=== PATIENT | female | born 1950 | race African-American/Black ===

== ENCOUNTER 2016-12-10 05:16 | Inpatient (IN) ==
[2016-12-10] MEDS ORDERED: LACTATED RINGERS 1,000 ML IV SCH (06:30)
[2016-12-10 06:45] LABS: Basophils % 0.2 % (0.0-0.8); Eosinophils # 0.1 10*3/uL (0.0-0.87); Eosinophils % 1.1 % (0.00-10.9); Hemoglobin 10.5 GM/DL (12.0-16.0); Immature Granulocytes % 0.5 %; Immature Granulocytes Absolute 0.05 #; Lymphocytes # 1.9 10*3/uL (1.4-4.0); Mean Corpuscular HGB Conc 33.9 GM/DL (32-36); Mean Corpuscular Hemoglobin 31 PG (27-34); Mean Corpuscular Volume 92.8 FL (87-102); Mean Platelet Volume 11.3 FL (9.6-12.0); Monocytes # 0.6 10*3/uL (0.11-0.8); Monocytes % 6.5 % (1.7-12.7); Neutrophils # 6.6 10*3/uL (1.4-7.4); Neutrophils % 71.7 % (38.7-73.9); Platelet Count 359 T/CUMM (130-400); Red Blood Count 3.34 MC/CUMM (3.8-5.5); Red Cell Distribution Width 15.2 % (9.3-17.3); White Blood Count 9.2 T/CUMM (4-12)
--- NOTE | 2016-12-10 06:49 | History and Physical Update ---
History and Physical Update - History and Physical H&P was reviewed, the patient examined and there: are no changes in the patients condition since last H&P was completed.
--- NOTE | 2016-12-10 06:52 | EKG Report ---
Stationary ECG Study [facility] Test Date: 12/10/2016 6:51:49 AM Pat Name: RUDDY MIKE Department: Room: 608 Gender: F Neurosurgical Nurse Practitioner: RICHARD : 1950 Requested by: Tommy Story Order Number: [id number] Reading MD: CHARLES MENDEZ Intervals [place] Rate: 86 P: 57 FL: 185 QRS: 70 QRSD: 76 T: 37 QT: 309 QTc: 353 Interpretive Statements SINUS RHYTHM WITH OCCASIONAL SUPRAVENTRICULAR PREMATURE COMPLEXES SEPTAL MYOCARDIAL INFARCTION, PROBABLY OLD Electronically Signed On 12-10-16 12:55:59 CDT by CHARLES MENDEZ [email or web address]
[2016-12-10 07:04] LABS: INR 1.1; PT Patient Result 11.3 SECS; Partial Thromboplastin Time 31.4 SECS (0-40)
[2016-12-10] MEDS ORDERED: PROPOFOL 200 MG/20 ML VIAL IV ONE (07:15)
[2016-12-10] MEDS ORDERED: PHENYLEPHRINE 1 MG/10 ML SYRINGE IV ONE (07:15)
[2016-12-10 07:20] LABS: Albumin 2.8 G/DL (3.4-5.0); Bilirubin,Total 0.5 MG/DL (0.2-1.0); Calcium 9.6 MG/DL (8.5-10.1); Osmolality,Calculated 284.4 MOS/KG (273-304); Potassium 4.6 MMOL/L (3.5-5.1); Total Protein 7.7 G/DL (6.4-8.3)
--- NOTE | 2016-12-10 07:23 | XRay Report ---
Portable chest. Indication: Respiratory preoperative. Comparison: July 13, 2015. The heart is mildly enlarged. The pulmonary vasculature is normal. The lung cutler are clear. Gaseous distention of bowel. Degenerative changes of the spinal column and shoulders. Surgical clips in the right upper quadrant. Impression: Stable mild cardiomegaly. PROCEDURE INTERPRETED AT [facility] DEPARTMENT OF RADIOLOGY Final Report Signed by: Dr. Rut Clarke
[2016-12-10] MEDS ORDERED: BUPIVACAINE 0.25% 50 ML VIAL ONE (07:47)
[2016-12-10] MEDS ORDERED: LIDOCAINE 1%/EPI INJ 20 ML VIAL ONE (07:47)
[2016-12-10] MEDS ORDERED: ONDANSETRON 4 MG/2 ML VIAL IV PRN (08:52)
[2016-12-10] MEDS ORDERED: oxyCODONE/ACETAMINOPHEN 5-325 MG TABLET PO PRN (08:52)
[2016-12-10] MEDS ORDERED: ACETAMINOPHEN 325 MG TABLET PO PRN (08:52)
--- NOTE | 2016-12-10 08:52 | Operative Note ---
Date of procedure: 12/10/16 Pre-op diagnosis: Decubitus ulcers 3 Post-op diagnosis: same Procedure: Operative note: Preoperative diagnosis: 1. Unstageable left ischial decubitus ulcer. 2. Stage IV sacral decubitus ulcer 3. Unstageable right ischial decubitus ulcer Postoperative diagnosis: 1. Stage III left ischial decubitus ulcer 2. Stage IV sacral decubitus ulcer 3. Stage 4 right ischial decubitus ulcer Surgeon Dr. Story Anesthesia was general with local Brief history: 66-year-old patient status post CVA with a PEG tube in place primarily at home had been followed at the wound center for sacral ulcer. She came in a couple weeks ago with a new area on the right initial or greater trochanter area and one on the left ischial area. These areas had some necrotic tissue we debrided him at that time. She came back in at this last wound center and the one on the right was extremely bad with odor with a large amount necrotic tissue. It was too sensitive and she is too combative to do anything in the center so would like to bring through same day surgery for further debridement. Procedure: With patient in the left decubitus position prepped and draped in a sterile fashion timeout and antibiotics completed approaches area the wounds themselves. The pre-debridement ulcers are 1. Left ischial ulcer 2.5 x 2 x 1 cm. 2. sacral ulcer 6 x 2 x 1 cm. 3. Right ischial ulcer 3.8 x 3 x 1.5 cm At this point I like to go ahead and approach the left ischial ulcer first since is the hardest one to get to and was more dependent. At that point I took a knife and I begin to excise the necrotic tissue around the skin edge excising the skin and then carried down through this necrotic fatty tissue and into the deep fatty tissue of this area. We removed the skin and necrotic fatty tissue down to a clean bed until we had a good clean fatty tissue but no exposure of any fascia or muscle at this time. We washed and cleaned this and used electrocauterization. Post debridement wound is now 4 x 3 x 2 cm. I next went to the sacral ulcer by took a knife and excised the old skin around the edges of this ulcer came into the deep part of the tissue and then debrided the hyper granulating tissue off the base of the sacrum at this time. I then debrided some necrotic fatty tissue with the scissors and used electrocauterization control bleeding across the bed. Washed irrigated and cleaned it up at this time. We now have an ulcer that is 7 x 5 x 1.5 cm in size. Finally went up to the larger ulcer on the right initial area greater trochanter region. I begin to excise the necrotic skin around the edges of it and all the necrotic fatty tissue and slough that was in the base of this wound bed going care in it all way down. We took some tissue for culture from this area. At that point I could tell we had a good bit of undermining that was projecting laterally so I had a extend the incision in order to get to this tissue which had a large amount of necrotic tissue in this area. I debrided the fatty tissue from underneath the skin carried it down to the base at this point. I then begin debriding some muscle as well as fascia over the greater trochanter at this time. Did not expose any bone but debrided a good bit of fatty tissue fascia and muscle from the base of this wound bed to get a good clean area. One area in the muscle had oversew with some 3-0 Vicryl just with control bleeding. Washed irrigated and used electrocauterization control the rest of bleeding in the wound bed. We now have an ulcer that is 7 x 5 x 2.5 cm in size All the wounds were then washed irrigated and then got dressed and putting an Aquacel Ag gauze and the base along with the Dakin's wet gauze on top and a Mepilex border gauze. Patient was taken recovery room. Estimated blood loss 30 cc Sponge count correct 2 Drains none Complications none Condition stable satisfactory Anesthesia: GETA, local (0.25% Marcaine with epinephrine mixed ocio-ivi-[id number] 1% Xylocaine plain) Surgeon / Physician: Tommy Story Estimated blood loss: other (30 cc) Specimens: other (Tissue for cultures) Condition: stable Disposition: floor Results - Labs CBC & BMP: 12/10/16 06:38 12/10/16 06:37 Discharge Plan - Discharge Medications No Action Temazepam [Restoril] 15 mg PEG BEDTIME PRN PRN Reason: Sleep HYDROcodone/ACETAMIN 5-325 [[place] 5-325] 1 tablet PEG Q4H PRN PRN Reason: Pain Levothyroxine Tab [Synthroid Tab] 125 mcg PEG DAILY aMILoride [Midamor] 5 mg PEG DAILY Gemfibrozil [Lopid] 600 mg PEG BIDAC dilTIAZem HCl [Diltiazem ER (12 hr)] 60 mg PEG DAILY Atorvastatin [Lipitor] 20 mg PEG BEDTIME - Follow Up or Referral - Forms/Instructions
[2016-12-10] MEDS ORDERED: CHLORHEXIDINE 4% SOLN 118 ML BOTTLE TOP ONE (08:59)
[2016-12-10] MEDS ORDERED: SKIN HEALING OINT (AQUAPHOR) 50 GM TUBE TOP PRN (08:59)
[2016-12-10] MEDS ORDERED: TEMAZEPAM 15 MG CAPSULE PEG PRN (09:01)
[2016-12-10] MEDS ORDERED: SEVOFLURANE 1 UNIT/15 MINUTE INH ONE (09:15)
[2016-12-10] MEDS ORDERED: fentaNYL 100 MCG/2 ML VIAL ONE (09:15)
--- NOTE | 2016-12-10 09:38 | Anesthesia Post-Op ---
Anesthesia Post OP - Post Ansesthetic Evaluation Patient seen in post op: Yes Resp: within normal limits CV: within normal limits Mental: other (calmer for now, not combative) Temp: within normal limits Ruiq-Yo-Yxvqugoig: within normal limits Nausea and Vomiting: within normal limits Pain: within normal limits
[2016-12-10] MEDS ORDERED: GLUCAGON 1 MG VIAL IM PRN (11:16)
[2016-12-10] MEDS ORDERED: DEXTROSE 50% 25 GM/50 ML VIAL IV PRN (11:16)
[2016-12-10] MEDS: SODIUM CHLORIDE 0.9% 1,000 ML IV SCH (13:11)
[2016-12-10] MEDS: PANTOPRAZOLE 40 MG TABLET PO SCH (13:12)
[2016-12-10] MEDS: ceFAZolin 2,000 MG in PREMIX 1 EACH IV SCH ×2 (16:24→22:11)
[2016-12-10] MEDS: GEMFIBROZIL 600 MG TABLET PEG SCH (16:35)
[2016-12-10] MEDS: SODIUM HYPOCHLORITE 0.25% IRRIG 473 ML BOTTLE TOP SCH (19:46)
[2016-12-10] MEDS: ATORVASTATIN 20 MG TABLET PEG SCH (21:48)
[2016-12-11 02:41] LABS: Basophils % 0.2 % (0.0-0.8); Eosinophils # 0.1 10*3/uL (0.0-0.87); Hematocrit 30.3 VOL% (35.7-47.0); Hemoglobin 9.7 GM/DL (12.0-16.0); Immature Granulocytes % 0.3 %; Immature Granulocytes Absolute 0.03 #; Lymphocytes # 1.7 10*3/uL (1.4-4.0); Lymphocytes % 19.4 % (21.3-54.2); Mean Corpuscular Hemoglobin 31 PG (27-34); Mean Corpuscular Volume 96.8 FL (87-102); Mean Platelet Volume 12.2 FL (9.6-12.0); Monocytes # 0.5 10*3/uL (0.11-0.8); Monocytes % 6.2 % (1.7-12.7); Neutrophils # 6.3 10*3/uL (1.4-7.4); Neutrophils % 72.9 % (38.7-73.9); Platelet Count 317 T/CUMM (130-400); Red Blood Count 3.13 MC/CUMM (3.8-5.5); Red Cell Distribution Width 15.7 % (9.3-17.3); White Blood Count 8.7 T/CUMM (4-12)
[2016-12-11 03:11] LABS: Calcium 8.5 MG/DL (8.5-10.1); Osmolality,Calculated 290.1 MOS/KG (273-304); Potassium 4.7 MMOL/L (3.5-5.1)
[2016-12-11] MEDS: SODIUM CHLORIDE 0.9% 1,000 ML IV SCH ×3 (04:33→21:42)
[2016-12-11] MEDS: ENOXAPARIN 40 MG/0.4 ML SYRINGE SUBCUT SCH (06:29)
[2016-12-11] MEDS: ceFAZolin 2,000 MG in PREMIX 1 EACH IV SCH ×3 (06:30→22:11)
--- NOTE | 2016-12-11 08:23 | General Surgery Progress Note ---
Assessment and Plan (1) Ulcer Status: Acute Assessment and plan: Plan: Continue local wound care for ulcer. Current Visit: Yes Subjective Patient reports: Present: no new complaints Exam - Constitutional Vitals: Period Temp Pulse Resp BP Sys/Zeng Pulse Ox Last 24 Hr 97.0 F-99.0 F 59-109 14-20 117-168/63-100 89-100 General appearance: no acute distress - Respiratory Respiratory exam: Present: clear to auscultation bilaterally - Cardiovascular Cardiovascular exam: Present: RRR - GI/Abdominal GI/Abdominal exam: Present: soft - Back Exam Back exam: Present: other (Decubitus ulcer clean. ) Results - Labs CBC & BMP: 12/11/16 02:12 12/11/16 02:12 Lab Results: I have reviewed the past 24 hour labs
[2016-12-11] MEDS: aMILoride 5 MG TABLET PEG SCH (08:24)
[2016-12-11] MEDS: LEVOTHYROXINE 125 MCG TABLET PEG SCH (08:24)
[2016-12-11] MEDS: SODIUM HYPOCHLORITE 0.25% IRRIG 473 ML BOTTLE TOP SCH (08:24)
[2016-12-11] MEDS: PANTOPRAZOLE 40 MG TABLET PO SCH (08:24)
[2016-12-11] MEDS: GEMFIBROZIL 600 MG TABLET PEG SCH ×2 (08:24→17:39)
[2016-12-11] MEDS: HYDROmorphone 2 MG/1 ML VIAL IV PRN (08:24)
[2016-12-11] MEDS ORDERED: DILTIAZEM HCL 60 MG PEG SCH (09:00)
[2016-12-11] MEDS: ATORVASTATIN 20 MG TABLET PEG SCH (21:42)
[2016-12-12] MEDS: SODIUM CHLORIDE 0.9% 1,000 ML IV SCH ×2 (04:32→21:24)
[2016-12-12] MEDS: ceFAZolin 2,000 MG in PREMIX 1 EACH IV SCH ×3 (06:36→23:18)
[2016-12-12] MEDS: ENOXAPARIN 40 MG/0.4 ML SYRINGE SUBCUT SCH (06:36)
[2016-12-12] MEDS: aMILoride 5 MG TABLET PEG SCH (09:19)
[2016-12-12] MEDS: LEVOTHYROXINE 125 MCG TABLET PEG SCH (09:19)
[2016-12-12] MEDS: PANTOPRAZOLE 40 MG TABLET PO SCH (09:19)
[2016-12-12] MEDS: GEMFIBROZIL 600 MG TABLET PEG SCH ×2 (09:19→17:41)
[2016-12-12] MEDS: HYDROmorphone 2 MG/1 ML VIAL IV PRN (11:57)
[2016-12-12] MEDS: SODIUM HYPOCHLORITE 0.25% IRRIG 473 ML BOTTLE TOP SCH (11:57)
--- NOTE | 2016-12-12 12:51 | General Surgery Progress Note ---
Assessment and Plan (1) Ulcer Status: Acute Assessment and plan: Plan: Continue local wound care for ulcers. Current Visit: Yes Subjective Patient reports: Present: no new complaints Exam - Constitutional Vitals: Period Temp Pulse Resp BP Sys/Zeng Pulse Ox Last 24 Hr 98 F-99.0 F 72-92 16-20 90-152/50-75 96-100 General appearance: no acute distress - Neck Neck exam: Present: normal inspection - Cardiovascular Cardiovascular exam: Present: RRR - GI/Abdominal GI/Abdominal exam: Present: soft - Back Exam Back exam: Present: other (Ulcer stable.) Results - Labs CBC & BMP: 12/11/16 02:12 12/11/16 02:12
[2016-12-12] MEDS: ATORVASTATIN 20 MG TABLET PEG SCH (21:20)
[2016-12-13 05:22] LABS: Basophils % 0.2 % (0.0-0.8); Eosinophils # 0.2 10*3/uL (0.0-0.87); Eosinophils % 2.2 % (0.00-10.9); Hematocrit 25.6 VOL% (35.7-47.0); Hemoglobin 8.6 GM/DL (12.0-16.0); Immature Granulocytes % 0.6 %; Immature Granulocytes Absolute 0.05 #; Lymphocytes # 1.9 10*3/uL (1.4-4.0); Lymphocytes % 20.8 % (21.3-54.2); Mean Corpuscular HGB Conc 33.6 GM/DL (32-36); Mean Corpuscular Hemoglobin 31 PG (27-34); Mean Corpuscular Volume 92.4 FL (87-102); Mean Platelet Volume 11.8 FL (9.6-12.0); Monocytes # 0.6 10*3/uL (0.11-0.8); Monocytes % 6.9 % (1.7-12.7); Neutrophils # 6.2 10*3/uL (1.4-7.4); Neutrophils % 69.3 % (38.7-73.9); Platelet Count 347 T/CUMM (130-400); Red Blood Count 2.77 MC/CUMM (3.8-5.5); Red Cell Distribution Width 15.3 % (9.3-17.3); White Blood Count 8.9 T/CUMM (4-12)
[2016-12-13] MEDS: ENOXAPARIN 40 MG/0.4 ML SYRINGE SUBCUT SCH (05:30)
[2016-12-13 05:56] LABS: Magnesium 2.1 MG/DL (1.8-2.4); Osmolality,Calculated 287.1 MOS/KG (273-304); Potassium 4.7 MMOL/L (3.5-5.1)
[2016-12-13 06:00] LABS: Calcium 7.8 MG/DL (8.5-10.1); Osmolality,Calculated 287.1 MOS/KG (273-304); Phosphorous 2.3 MG/DL (2.5-4.9); Potassium 4.8 MMOL/L (3.5-5.1); Prealbumin 11.2 MG/DL (20-40)
[2016-12-13] MEDS: SODIUM CHLORIDE 0.9% 1,000 ML IV SCH ×3 (07:52→21:13)
[2016-12-13] MEDS ORDERED: SODIUM CHLORIDE 0.9% 250 ML IV PRN (08:27)
[2016-12-13] MEDS ORDERED: glyBURIDE 5 MG TABLET PO PRN (08:29)
--- NOTE | 2016-12-13 08:31 | General Surgery Progress Note ---
Subjective Patient reports: Present: no new complaints, afebrile Exam - Constitutional Vitals: Period Temp Pulse Resp BP Sys/Zeng Pulse Ox Last 24 Hr 97.6 F-99.2 F 73-93 15-20 90-133/50-84 93-98 General appearance: mild distress - Head Head exam: Present: normal inspection - ENT ENT exam: Present: normal exam - Neck Neck exam: Present: normal inspection - Respiratory Respiratory exam: Present: rales - Cardiovascular Cardiovascular exam: Present: RRR - GI/Abdominal GI/Abdominal exam: Present: soft. Absent: tenderness - Extremities Exam Extremities exam: Present: other (Right hip and left ischial ulcers are clean at this time no further necrotic tissue noted.) - Back Exam Back exam: Present: other (Sacral ulcer base looks clean with no sign of any necrotic tissue present) - Neurological Exam Neurological exam: Present: altered - Skin Skin exam: Present: normal color, warm, dry Results - Labs CBC & BMP: 12/13/16 03:41 12/13/16 03:41 Lab Results: I have reviewed the past 24 hour labs Specialty Discharge - Follow Up or Referrals Follow up with: Tommy Velazquez MD [Physician] - 12/28/16 8:30 am (appointment with dr. velazquez at the wound center)
[2016-12-13] MEDS: LEVOTHYROXINE 125 MCG TABLET PEG SCH (08:55)
[2016-12-13] MEDS: aMILoride 5 MG TABLET PEG SCH (08:55)
[2016-12-13] MEDS: SODIUM HYPOCHLORITE 0.25% IRRIG 473 ML BOTTLE TOP SCH (08:55)
[2016-12-13] MEDS: GEMFIBROZIL 600 MG TABLET PEG SCH ×2 (08:55→16:10)
[2016-12-13] MEDS: PANTOPRAZOLE 40 MG TABLET PO SCH (08:55)
[2016-12-13] MEDS: ASPIRIN EC 81 MG TABLET PO SCH (08:56)
[2016-12-13] MEDS: LEVOFLOXACIN 500 MG TABLET PO SCH (08:56)
--- NOTE | 2016-12-13 18:16 | Pathology Report from [facility] ---
[facility] [place] : [id number] PATIENT NAME : Ruddy Woodard ORDERING DR : LIBERTY BROWNING MD CLINICAL HX: Bilateral ischial ulcer and sacral ulcer POST-OP DX: Same SPECIMEN INFO: Right ischial tissue GROSS DESCRIPTION: The specimen is received in formalin labeled with the patients name and consists of four fragments of hyperemic aparicio-bates debrided tissue collectively measuring 3.5 x 2.8 cm. Fisheries Diver tissue submitted in one cassette. DIAGNOSIS FOR RUDDY WOODARD: RIGHT ISCHIAL & SACRAL ULCERS, DEBRIDEMENT: Fragments of fibroconnective tissue, adipose tissue and skeletal muscle with acute and chronic inflammation and exudate debris, consistent with ulcer. No organisms seen on AFB or GMS special stains with appropriate controls performed. COLLECTED DATE: 12/10/2016 [facility] [place] DATE: 12/13/2016 ELECTRONICALLY SIGNED BY: Charo Young M.D. 12/13/2016 - 13:04:20 [facility]
[2016-12-13] MEDS: ATORVASTATIN 20 MG TABLET PEG SCH (20:59)
[2016-12-14 06:24] LABS: Basophils % 0.3 % (0.0-0.8); Eosinophils # 0.3 10*3/uL (0.0-0.87); Eosinophils % 4.6 % (0.00-10.9); Hematocrit 31.8 VOL% (35.7-47.0); Immature Granulocytes % 0.5 %; Immature Granulocytes Absolute 0.04 #; Mean Corpuscular HGB Conc 33.3 GM/DL (32-36); Mean Corpuscular Hemoglobin 30 PG (27-34); Mean Corpuscular Volume 89.3 FL (87-102); Mean Platelet Volume 11.8 FL (9.6-12.0); Monocytes # 0.4 10*3/uL (0.11-0.8); Monocytes % 5.9 % (1.7-12.7); Neutrophils # 4.6 10*3/uL (1.4-7.4); Neutrophils % 61.7 % (38.7-73.9); Platelet Count 291 T/CUMM (130-400); Red Cell Distribution Width 16.8 % (9.3-17.3); White Blood Count 7.4 T/CUMM (4-12)
[2016-12-14] MEDS: ENOXAPARIN 40 MG/0.4 ML SYRINGE SUBCUT SCH (06:24)
[2016-12-14 06:39] LABS: Red Blood Count 3.56 MC/CUMM (3.8-5.5)
[2016-12-14 06:40] LABS: Hemoglobin 10.6 GM/DL (12.0-16.0)
[2016-12-14 07:22] VITALS: BP 134/73
[2016-12-14] MEDS: SODIUM CHLORIDE 0.9% 1,000 ML IV SCH (07:42)
--- NOTE | 2016-12-14 08:19 | Discharge Summary ---
Hospital Course - Hospital Course Hospital Course: Discharge summary: Discharge diagnosis: 1 decubitus ulcer stage IV right hip 2. Decubitus ulcer sacrum stage IV 3. Decubitus ulcer left ischeal stage III 4. Status post CVA a phasic 5. Moderate malnutrition Procedure: Excisional debridement of ulcers of the left hip, sacrum, and right ishium Surgeon Dr. 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 At this point she came to the wound center and had new ulcers in the right hip left ischial area that needed extensive debridement that we could not do in the center. Came in through same day surgery where we debrided these ulcers I put her in to watch for any unusual bleeding. 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 She was transfused yesterday in order to get her crit up and it is now 31 at this time. Hopefully this will help her healing at this time along with her present wound care. We will plan to discharge her today and get her back in wound center and see if we can get these things respond and improve over time. - Time spent with patient Time with patient DS: Less than 30 minutes Diagnosis - Discharge Diagnosis (1) Decubitus ulcers Status: Chronic Specialty Discharge - Follow Up or Referrals Follow up with: Tommy Velazquez MD [Physician] - 12/28/16 8:30 am (appointment with dr. velazquez at the wound center) Discharge Plan - Discharge Data Disposition: Home Health Service Condition at Discharge: Stable Discharge Diet: advance to your usual diet, other (Tube feedings) Activity: other (Turn the patient frequently not to let her lay on her back or on her side to do any one time to avoid prolonged sitting) Hygiene: other (Made daily may have to do in bed baths. ) Weight Bearing at Discharge: non-weight bearing Contact your physician if you experience:: fever over 101, Redness or swelling, Bleeding, pain uncontrolled by pain medications Wound / Dressing Care Instructions: Wound care to decubitus ulcers right hip sacrum, and left ischium. 1. Wash with Hibiclens. 2. Irrigate each wound with 20 cc of half-strength Dakin solution. 3. Apply Aquacel Ag gauze to the base of each ulcer and place a Dakin's wet fluff on top. 4. Cover with Mepilex border gauze - Discharge Medications New Acetaminophen Tab [Tylenol Tab] 650 mg PO Q6H PRN tablet PRN Reason: Pain Mild (1-3) Ampicillin Cap 500 mg PO QID #40 capsule Skin Healing Oint (Aquaphor) [Aquaphor] 1 applic TOP DAILY #1 bottle Sodium Hypochlorite 0.25% Irr [Dakins 1/2 Strength 0.25% Soln] 20 ml TOP DAILY #1 bottle Continue Temazepam [Restoril] 15 mg PEG BEDTIME PRN PRN Reason: Sleep HYDROcodone/ACETAMIN 5-325 [[place] 5-325] 1 tablet PEG Q4H PRN PRN Reason: Pain glyBURIDE [Glyburide] 5 mg PO DAILY PRN PRN Reason: Glucose Management Levothyroxine Tab [Synthroid Tab] 125 mcg PEG DAILY aMILoride [Midamor] 5 mg PEG DAILY Gemfibrozil [Lopid] 600 mg PEG BIDAC dilTIAZem HCl [Diltiazem ER (12 hr)] 60 mg PEG DAILY Atorvastatin [Lipitor] 20 mg PEG BEDTIME Aspirin [Ecotrin] 81 mg PO DAILY - Follow Up or Referral Follow Up: Tommy Velazquez MD [Physician] - 12/28/16 8:30 am (appointment with dr. velazquez at the wound center) - Forms/Instructions Exam - Constitutional Vitals: Period Temp Pulse Resp BP Sys/Zeng Pulse Ox Last 24 Hr 97.4 F-975 F 68-91 15-18 112-170/46-86 90-96 General appearance: no acute distress - Head Head exam: Present: normal inspection - ENT ENT exam: Present: normal exam - Neck Neck exam: Present: normal inspection - Respiratory Respiratory exam: Present: clear to auscultation bilaterally, rales - Cardiovascular Cardiovascular exam: Present: regular rate and rhythm - GI/Abdominal GI/Abdominal exam: Present: hypoactive bowel sounds, soft - Extremities Exam Extremities exam: Present: other (Ulcers are clean with no necrotic tissue present at this time. Left) - Neurological Exam Neurological exam: Present: altered - Psychiatric Psychiatric exam: Present: anxious - Skin Skin exam: Present: normal color, warm, dry Discharge Results Procedures and tests throughout hospitalization: Pending Orders 12/10/16 Anaerobic Culture Routine 12/16/16 04:00 Basic Metabolic Panel MOTH Magnesium MOTH Phosphorous MOTH Prealbumin MOTH Labs on day of discharge: Labs from last 24 hours 12/14/16 12/13/16 05:44 03:41 WBC 7.4 RBC 3.56 L D Hgb 10.6 L D Hct 31.8 L MCV 89.3 MCH 30 MCHC 33.3 RDW 16.8 Plt Count 291 MPV 11.8 Neut % (Auto) 61.7 Lymph % (Auto) 27.0 [place] % (Auto) 5.9 Eos % (Auto) 4.6 Baso % (Auto) 0.3 Neut # (Auto) 4.6 Lymph # (Auto) 2.0 [place] # (Auto) 0.4 Eos # (Auto) 0.3 Baso # (Auto) 0.0 Immature Gran % 0.5 Nucleated RBC % 0.0 Immature Gran # 0.04 Nucleated RBCs # 0.00 Blood Type A POSITIVE Antibody Screen Negative Crossmatch See Detail DS: Provider Date of admission: 12/10/16 08:52 Attending physician on admission: Tommy Velazquez MD Consults: 12/10/16 08:52 Consult to Wound Care - Sisters [CONS] Routine Reason for Wound Care: Wound Care Management Consult Comment: decubitus ulcers and get sports bed 12/10/16 08:58 Consult to Case Mgmt/Social Srvs [CONS] Routine Reason for Case Mgmt/Social Srvs: Discharge Planning Home Health Consult Comment: see about pts home health status & start HH again 12/10/16 09:03 Consult to Dietitian [CONS] Routine Reason for Dietitian: Dietary Consult Other Consult Comment: resume PEG tube feedings 12/10/16 11:02 Consult to Pastoral Services [CONS] Routine Comment: Pastoral Screen: Request Catalyst Unit Operator Visit Pastoral Screen Source of Request: Family Discharging clinician: Tommy Velazquez MD Expected date of discharge: 12/14/16
[2016-12-14] MEDS: GEMFIBROZIL 600 MG TABLET PEG SCH (08:48)
[2016-12-14] MEDS: SODIUM HYPOCHLORITE 0.25% IRRIG 473 ML BOTTLE TOP SCH (08:48)
[2016-12-14] MEDS: LEVOFLOXACIN 500 MG TABLET PO SCH (08:48)
[2016-12-14] MEDS: ASPIRIN EC 81 MG TABLET PO SCH (08:48)
[2016-12-14] MEDS: PANTOPRAZOLE 40 MG TABLET PO SCH (08:48)
[2016-12-14] MEDS: LEVOTHYROXINE 125 MCG TABLET PEG SCH (08:48)
[2016-12-14] MEDS: aMILoride 5 MG TABLET PEG SCH (08:48)
[2016-12-14] MEDS ORDERED: AMPICILLIN 500 MG CAPSULE PO SCH (09:00)
--- NOTE | 2016-12-17 13:32 | Physician Query Form ---
CLICK EDIT DOCUMENT TO SELECT QUERY ANSWER --> OK --> SIGN Glendy Ruiz RN Clinical Asphalt Paving Foreman W) [phone] (f) [phone] [email or web address]: Make your selection(s) from the choices in EACH section by typing an "x" and enter comments in the comment section. Please use your independent medical judgment in providing your response. This request does not imply that any particular answer is desired or expected. CLINICAL INDICATORS: (Providers should not edit this section) Based on documentation of "status post CVA" "Wheelchair bound due to stroke" "Sacral decubitus" Decubitus treated with excisional debridement. 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 MTDD
== END 2016-12-14 10:04 | disposition home health service (06) | DRG 570 ==
LOC: N.OR 05:16 → N.SDSINP 05:25 → N.3E 08:52
PROVIDERS: ADMIT Specialist; ATTEND Specialist

== ENCOUNTER 2018-06-13 09:49 | Inpatient (IN) ==
[2018-06-13 10:50] LABS: Basophils % 0.4 % (0.0-0.8); Eosinophils % 0.3 % (0.00-10.9); Hematocrit 36.3 VOL% (35.7-47.0); Hemoglobin 12.1 GM/DL (12.0-16.0); Immature Granulocytes % 0.5 %; Immature Granulocytes Absolute 0.04 #; Lymphocytes # 1.8 10*3/uL (1.4-4.0); Lymphocytes % 24.5 % (21.3-54.2); Mean Corpuscular HGB Conc 33.3 GM/DL (32-36); Mean Corpuscular Hemoglobin 31 PG (27-34); Mean Corpuscular Volume 93.8 FL (87-102); Monocytes # 0.7 10*3/uL (0.11-0.8); Monocytes % 9.2 % (1.7-12.7); Neutrophils # 4.9 10*3/uL (1.4-7.4); Neutrophils % 65.1 % (38.7-73.9); Platelet Count 269 T/CUMM (130-400); Red Blood Count 3.87 MC/CUMM (3.8-5.5); White Blood Count 7.5 T/CUMM (4-12)
[2018-06-13 11:08] LABS: Bilirubin,Total 0.7 MG/DL (0.2-1.0); Osmolality,Calculated 295.7 MOS/KG (273-304); Potassium 4.9 MMOL/L (3.5-5.1); Total Protein 8.7 G/DL (6.4-8.3)
[2018-06-13] MEDS ORDERED: SODIUM CHLORIDE 0.9% 500 ML IV STA (11:33)
[2018-06-13 12:04] LABS: Amorphous Crystals,Urine Occasional /HPF (Few); Apearance,Urine CLOUDY (Clear); Bilirubin,Urine Negative (Negative); Blood, Urine Moderate mg/dL (Negative); Glucose,Urine (UA) Negative (Negative); Hyaline Casts,Urine 13 /LPF (0-3); Ketones,Urine 5 mg/dL (Negative); Mucus,Urine Occasional /LPF (Occasional); Nitrite,Urine Negative (Negative); Protein,Urine 100 MG/DL; RBC,Urine 25 /HPF (0-4); Urine Color Yellow (Yellow); Urine Specific Gravity 1.014 (1.001-1.035); Urine Urobilinogen < 2.0 EU/DL (0.2-1.0); WBC,Urine 291 /HPF (0-6)
[2018-06-13] MEDS ORDERED: LEVOFLOXACIN INJ 500 MG in PREMIX 1 EACH IV STA (12:12)
[2018-06-13] MEDS ORDERED: ONDANSETRON 4 MG/2 ML VIAL IV PRN (13:45)
[2018-06-13] MEDS: ATORVASTATIN 20 MG TABLET PEG SCH (20:47)
[2018-06-13] MEDS: ACETAMINOPHEN 325 MG TABLET PEG PRN (20:47)
[2018-06-14] MEDS: ACETAMINOPHEN 325 MG TABLET PEG PRN ×2 (02:30→22:13)
[2018-06-14 04:46] LABS: Basophils % 0.5 % (0.0-0.8); Eosinophils # 0.1 10*3/uL (0.0-0.87); Eosinophils % 2.1 % (0.00-10.9); Hematocrit 35.2 VOL% (35.7-47.0); Hemoglobin 11.5 GM/DL (12.0-16.0); Immature Granulocytes % 0.3 %; Immature Granulocytes Absolute 0.02 #; Lymphocytes # 1.9 10*3/uL (1.4-4.0); Lymphocytes % 28.4 % (21.3-54.2); Mean Corpuscular HGB Conc 32.7 GM/DL (32-36); Mean Corpuscular Hemoglobin 31 PG (27-34); Mean Corpuscular Volume 94.6 FL (87-102); Mean Platelet Volume 11.2 FL (9.6-12.0); Monocytes # 0.7 10*3/uL (0.11-0.8); Neutrophils # 3.9 10*3/uL (1.4-7.4); Neutrophils % 58.7 % (38.7-73.9); Platelet Count 277 T/CUMM (130-400); Red Blood Count 3.72 MC/CUMM (3.8-5.5); Red Cell Distribution Width 14.9 % (9.3-17.3); White Blood Count 6.6 T/CUMM (4-12)
[2018-06-14 05:16] LABS: Osmolality,Calculated 304.3 MOS/KG (273-304); Potassium 4.4 MMOL/L (3.5-5.1); Thyroid Stimulating Hormone 1.74 uIU/ml (0.358-3.74)
[2018-06-14 05:39] LABS: Prealbumin 10.4 MG/DL (20-40)
[2018-06-14] MEDS: LEVOTHYROXINE 125 MCG TABLET PEG SCH (07:11)
[2018-06-14] MEDS: cefTRIAXone 1,000 MG in SYRINGE 1 EACH IV SCH (10:13)
[2018-06-14] MEDS: PANTOPRAZOLE 40 MG TABLET PO SCH (10:13)
[2018-06-14] MEDS: ASPIRIN EC 81 MG TABLET PO SCH (10:13)
[2018-06-14] MEDS: DILTIAZEM 30 MG TABLET PO SCH ×2 (10:13→22:13)
[2018-06-14] MEDS: GEMFIBROZIL 600 MG TABLET PEG SCH ×2 (10:13→16:44)
[2018-06-14] MEDS: SODIUM HYPOCHLORITE 0.25% IRRIG 473 ML BOTTLE TOP SCH (10:13)
[2018-06-14] MEDS: aMILoride 5 MG TABLET PEG SCH (10:13)
[2018-06-14] MEDS: COLLAGENASE OINT 30 GM TUBE TOP SCH (10:14)
[2018-06-14] MEDS: SKIN HEALING OINT (AQUAPHOR) 50 GM TUBE TOP SCH (10:23)
[2018-06-14 18:37] LABS: Apearance,Urine CLOUDY (Clear); Bilirubin,Urine Negative (Negative); Blood, Urine Large mg/dL (Negative); Glucose,Urine (UA) Negative (Negative); Ketones,Urine Negative (Negative); Mucus,Urine Occasional /LPF (Occasional); Nitrite,Urine Negative (Negative); Protein,Urine 100 MG/DL; RBC,Urine 1 /HPF (0-4); Squamous Epithelial Cell,Urine Occasional /HPF (0-10); Urine Color Dark yellow (Yellow); Urine Specific Gravity 1.018 (1.001-1.035); Urine Urobilinogen < 2.0 EU/DL (0.2-1.0); WBC,Urine 1 /HPF (0-6)
[2018-06-14] MEDS: ATORVASTATIN 20 MG TABLET PEG SCH (22:13)
[2018-06-15 05:49] LABS: Basophils % 0.4 % (0.0-0.8); Eosinophils % 0.5 % (0.00-10.9); Hematocrit 42.2 VOL% (35.7-47.0); Immature Granulocytes % 0.6 %; Immature Granulocytes Absolute 0.05 #; Lymphocytes % 12.2 % (21.3-54.2); Mean Corpuscular HGB Conc 32.2 GM/DL (32-36); Mean Corpuscular Hemoglobin 31 PG (27-34); Mean Corpuscular Volume 96.3 FL (87-102); Mean Platelet Volume 10.7 FL (9.6-12.0); Monocytes # 0.5 10*3/uL (0.11-0.8); Monocytes % 6.8 % (1.7-12.7); Neutrophils # 6.2 10*3/uL (1.4-7.4); Neutrophils % 79.5 % (38.7-73.9); Platelet Count 263 T/CUMM (130-400); Red Blood Count 4.38 MC/CUMM (3.8-5.5); Red Cell Distribution Width 15.5 % (9.3-17.3); White Blood Count 7.8 T/CUMM (4-12)
[2018-06-15 05:59] LABS: Hemoglobin 13.6 GM/DL (12.0-16.0)
[2018-06-15 06:23] LABS: Calcium 9.1 MG/DL (8.5-10.1); Potassium 4.1 MMOL/L (3.5-5.1)
[2018-06-15] MEDS: LEVOTHYROXINE 125 MCG TABLET PEG SCH (06:28)
[2018-06-15] MEDS: SODIUM HYPOCHLORITE 0.25% IRRIG 473 ML BOTTLE TOP SCH (10:02)
[2018-06-15] MEDS: COLLAGENASE OINT 30 GM TUBE TOP SCH (10:02)
[2018-06-15] MEDS: cefTRIAXone 1,000 MG in SYRINGE 1 EACH IV SCH (10:14)
[2018-06-15] MEDS: SKIN HEALING OINT (AQUAPHOR) 50 GM TUBE TOP SCH (10:15)
[2018-06-15] MEDS: PANTOPRAZOLE 40 MG TABLET PO SCH (10:15)
[2018-06-15] MEDS: ASPIRIN EC 81 MG TABLET PO SCH (10:15)
[2018-06-15] MEDS: GEMFIBROZIL 600 MG TABLET PEG SCH ×2 (10:15→15:50)
[2018-06-15] MEDS: aMILoride 5 MG TABLET PEG SCH (10:15)
[2018-06-15] MEDS: DILTIAZEM 30 MG TABLET PO SCH ×2 (10:15→20:54)
[2018-06-15] MEDS: DEXTROSE 5% NACL 0.45% 1,000 ML IV SCH (10:15)
[2018-06-15] MEDS: ACETAMINOPHEN 325 MG TABLET PO PRN ×2 (10:20→16:46)
[2018-06-15] MEDS: CIPROFLOXACIN INJ 400 MG in PREMIX 1 EACH IV SCH (13:45)
[2018-06-15] MEDS: ENOXAPARIN 30 MG/0.3 ML SYRINGE SUBCUT SCH (20:54)
[2018-06-15] MEDS: ATORVASTATIN 20 MG TABLET PEG SCH (20:54)
[2018-06-15] MEDS: ACETAMINOPHEN 325 MG TABLET PEG PRN (20:55)
[2018-06-16] MEDS: DEXTROSE 5% NACL 0.45% 1,000 ML IV SCH ×2 (00:06→21:31)
[2018-06-16] MEDS: CIPROFLOXACIN INJ 400 MG in PREMIX 1 EACH IV SCH ×3 (00:51→23:48)
[2018-06-16] MEDS: LEVOTHYROXINE 125 MCG TABLET PEG SCH (06:04)
[2018-06-16] MEDS: ACETAMINOPHEN 325 MG TABLET PO PRN ×3 (06:05→21:38)
[2018-06-16 06:16] LABS: Basophils % 0.6 % (0.0-0.8); Eosinophils # 0.2 10*3/uL (0.0-0.87); Eosinophils % 3.3 % (0.00-10.9); Hematocrit 37.2 VOL% (35.7-47.0); Hemoglobin 11.7 GM/DL (12.0-16.0); Immature Granulocytes % 0.3 %; Immature Granulocytes Absolute 0.02 #; Lymphocytes # 1.6 10*3/uL (1.4-4.0); Lymphocytes % 23.3 % (21.3-54.2); Mean Corpuscular HGB Conc 31.5 GM/DL (32-36); Mean Corpuscular Hemoglobin 31 PG (27-34); Mean Corpuscular Volume 97.4 FL (87-102); Mean Platelet Volume 11.9 FL (9.6-12.0); Monocytes # 0.6 10*3/uL (0.11-0.8); Monocytes % 8.8 % (1.7-12.7); Neutrophils # 4.5 10*3/uL (1.4-7.4); Neutrophils % 63.7 % (38.7-73.9); Platelet Count 222 T/CUMM (130-400); Red Blood Count 3.82 MC/CUMM (3.8-5.5); Red Cell Distribution Width 15.6 % (9.3-17.3)
[2018-06-16 06:39] LABS: Calcium 8.3 MG/DL (8.5-10.1); Osmolality,Calculated 314.9 MOS/KG (273-304); Potassium 4.2 MMOL/L (3.5-5.1)
[2018-06-16] MEDS: cefTRIAXone 1,000 MG in SYRINGE 1 EACH IV SCH (09:05)
[2018-06-16] MEDS: ASPIRIN EC 81 MG TABLET PO SCH (09:48)
[2018-06-16] MEDS: GEMFIBROZIL 600 MG TABLET PEG SCH ×2 (09:48→18:21)
[2018-06-16] MEDS: SKIN HEALING OINT (AQUAPHOR) 50 GM TUBE TOP SCH (09:48)
[2018-06-16] MEDS: PANTOPRAZOLE 40 MG TABLET PO SCH (09:48)
[2018-06-16] MEDS: DILTIAZEM 30 MG TABLET PO SCH ×2 (09:48→21:37)
[2018-06-16] MEDS: aMILoride 5 MG TABLET PEG SCH (09:49)
[2018-06-16] MEDS: SODIUM HYPOCHLORITE 0.25% IRRIG 473 ML BOTTLE TOP SCH (09:51)
[2018-06-16] MEDS: COLLAGENASE OINT 30 GM TUBE TOP SCH (09:51)
[2018-06-16] MEDS: ENOXAPARIN 30 MG/0.3 ML SYRINGE SUBCUT SCH (21:37)
[2018-06-16] MEDS: ATORVASTATIN 20 MG TABLET PEG SCH (21:38)
[2018-06-17] MEDS: LEVOTHYROXINE 125 MCG TABLET PEG SCH (06:42)
[2018-06-17] MEDS: GEMFIBROZIL 600 MG TABLET PEG SCH ×2 (06:42→17:32)
[2018-06-17] MEDS: PANTOPRAZOLE 40 MG TABLET PO SCH (10:10)
[2018-06-17] MEDS: DILTIAZEM 30 MG TABLET PO SCH ×2 (10:10→21:46)
[2018-06-17] MEDS: ASPIRIN EC 81 MG TABLET PO SCH (10:10)
[2018-06-17] MEDS: aMILoride 5 MG TABLET PEG SCH (10:10)
[2018-06-17] MEDS: SKIN HEALING OINT (AQUAPHOR) 50 GM TUBE TOP SCH (10:11)
[2018-06-17] MEDS: SODIUM HYPOCHLORITE 0.25% IRRIG 473 ML BOTTLE TOP SCH (10:11)
[2018-06-17] MEDS: COLLAGENASE OINT 30 GM TUBE TOP SCH (10:12)
[2018-06-17 15:01] LABS: Basophils % 0.5 % (0.0-0.8); Eosinophils # 0.2 10*3/uL (0.0-0.87); Eosinophils % 3.9 % (0.00-10.9); Hematocrit 34.8 VOL% (35.7-47.0); Hemoglobin 11.1 GM/DL (12.0-16.0); Immature Granulocytes % 0.2 %; Immature Granulocytes Absolute 0.01 #; Lymphocytes # 1.8 10*3/uL (1.4-4.0); Mean Corpuscular HGB Conc 31.9 GM/DL (32-36); Mean Corpuscular Hemoglobin 31 PG (27-34); Mean Corpuscular Volume 97.8 FL (87-102); Mean Platelet Volume 11.1 FL (9.6-12.0); Monocytes # 0.5 10*3/uL (0.11-0.8); Monocytes % 8.9 % (1.7-12.7); Neutrophils # 3.3 10*3/uL (1.4-7.4); Neutrophils % 56.5 % (38.7-73.9); Platelet Count 203 T/CUMM (130-400); Red Blood Count 3.56 MC/CUMM (3.8-5.5); Red Cell Distribution Width 15.8 % (9.3-17.3); White Blood Count 5.9 T/CUMM (4-12)
[2018-06-17] MEDS: DEXTROSE 5% NACL 0.45% 1,000 ML IV SCH (15:35)
[2018-06-17] MEDS: CIPROFLOXACIN INJ 400 MG in PREMIX 1 EACH IV SCH ×2 (15:35→22:02)
[2018-06-17 15:41] LABS: Osmolality,Calculated 318.6 MOS/KG (273-304); Potassium 4.2 MMOL/L (3.5-5.1)
[2018-06-17] MEDS: ATORVASTATIN 20 MG TABLET PEG SCH (21:46)
[2018-06-17] MEDS: ACETAMINOPHEN 325 MG TABLET PO PRN (21:46)
[2018-06-17] MEDS: ENOXAPARIN 30 MG/0.3 ML SYRINGE SUBCUT SCH (21:46)
[2018-06-18] MEDS: CIPROFLOXACIN INJ 400 MG in PREMIX 1 EACH IV SCH ×3 (01:57→23:45)
[2018-06-18 05:58] LABS: Basophils % 0.3 % (0.0-0.8); Eosinophils # 0.3 10*3/uL (0.0-0.87); Eosinophils % 4.5 % (0.00-10.9); Hematocrit 35.1 VOL% (35.7-47.0); Hemoglobin 11.2 GM/DL (12.0-16.0); Immature Granulocytes % 0.5 %; Immature Granulocytes Absolute 0.03 #; Lymphocytes # 2.5 10*3/uL (1.4-4.0); Lymphocytes % 40.9 % (21.3-54.2); Mean Corpuscular HGB Conc 31.9 GM/DL (32-36); Mean Corpuscular Hemoglobin 31 PG (27-34); Mean Corpuscular Volume 97.2 FL (87-102); Mean Platelet Volume 11.8 FL (9.6-12.0); Monocytes # 0.5 10*3/uL (0.11-0.8); Monocytes % 7.7 % (1.7-12.7); NRBC # 0.02 10*3/uL; Neutrophils # 2.9 10*3/uL (1.4-7.4); Neutrophils % 46.1 % (38.7-73.9); Platelet Count 184 T/CUMM (130-400); Red Blood Count 3.61 MC/CUMM (3.8-5.5); Red Cell Distribution Width 15.9 % (9.3-17.3); White Blood Count 6.2 T/CUMM (4-12)
[2018-06-18 06:16] LABS: Osmolality,Calculated 315.4 MOS/KG (273-304); Potassium 4.4 MMOL/L (3.5-5.1)
[2018-06-18] MEDS: LEVOTHYROXINE 125 MCG TABLET PEG SCH (06:31)
[2018-06-18] MEDS: ACETAMINOPHEN 325 MG TABLET PO PRN ×2 (06:33→21:51)
[2018-06-18] MEDS: GEMFIBROZIL 600 MG TABLET PEG SCH ×2 (06:33→17:10)
[2018-06-18] MEDS: PANTOPRAZOLE 40 MG TABLET PO SCH (10:34)
[2018-06-18] MEDS: aMILoride 5 MG TABLET PEG SCH (10:34)
[2018-06-18] MEDS: ASPIRIN EC 81 MG TABLET PO SCH (10:34)
[2018-06-18] MEDS: DILTIAZEM 30 MG TABLET PO SCH ×2 (10:34→21:51)
[2018-06-18] MEDS: SKIN HEALING OINT (AQUAPHOR) 50 GM TUBE TOP SCH (10:35)
[2018-06-18] MEDS: COLLAGENASE OINT 30 GM TUBE TOP SCH (10:35)
[2018-06-18] MEDS: SODIUM HYPOCHLORITE 0.25% IRRIG 473 ML BOTTLE TOP SCH (10:35)
[2018-06-18] MEDS: CETIRIZINE 1 MG/ML 30 ML/BOTTLE PO SCH (10:41)
[2018-06-18] MEDS: DEXTROSE 5% 1,000 ML IV SCH (11:00)
[2018-06-18] MEDS: ATORVASTATIN 20 MG TABLET PEG SCH (21:51)
[2018-06-18] MEDS: ENOXAPARIN 30 MG/0.3 ML SYRINGE SUBCUT SCH (21:51)
[2018-06-19] MEDS: DEXTROSE 5% 1,000 ML IV SCH ×2 (05:22→10:08)
[2018-06-19] MEDS: CIPROFLOXACIN INJ 400 MG in PREMIX 1 EACH IV SCH ×3 (05:23→22:29)
[2018-06-19] MEDS: LEVOTHYROXINE 125 MCG TABLET PEG SCH (07:24)
[2018-06-19] MEDS: GEMFIBROZIL 600 MG TABLET PEG SCH ×2 (07:24→17:19)
[2018-06-19 08:14] LABS: Calcium 8.1 MG/DL (8.5-10.1); Osmolality,Calculated 302.3 MOS/KG (273-304); Potassium 4.6 MMOL/L (3.5-5.1)
[2018-06-19] MEDS: SODIUM HYPOCHLORITE 0.25% IRRIG 473 ML BOTTLE TOP SCH (10:06)
[2018-06-19] MEDS: COLLAGENASE OINT 30 GM TUBE TOP SCH (10:06)
[2018-06-19] MEDS: CETIRIZINE 1 MG/ML 30 ML/BOTTLE PO SCH (10:07)
[2018-06-19] MEDS: DILTIAZEM 30 MG TABLET PO SCH ×2 (10:07→22:25)
[2018-06-19] MEDS: aMILoride 5 MG TABLET PEG SCH (10:08)
[2018-06-19] MEDS: PANTOPRAZOLE 40 MG TABLET PO SCH (10:08)
[2018-06-19] MEDS: ASPIRIN EC 81 MG TABLET PO SCH (10:08)
[2018-06-19] MEDS: SKIN HEALING OINT (AQUAPHOR) 50 GM TUBE TOP SCH (10:08)
[2018-06-19] MEDS: ACETAMINOPHEN 325 MG TABLET PO PRN (22:25)
[2018-06-19] MEDS: ATORVASTATIN 20 MG TABLET PEG SCH (22:26)
[2018-06-19] MEDS: ENOXAPARIN 30 MG/0.3 ML SYRINGE SUBCUT SCH (22:30)
[2018-06-20] MEDS: DEXTROSE 5% 1,000 ML IV SCH ×2 (04:37→15:11)
[2018-06-20 06:11] LABS: Basophils % 0.3 % (0.0-0.8); Eosinophils # 0.3 10*3/uL (0.0-0.87); Eosinophils % 5.2 % (0.00-10.9); Hematocrit 33.8 VOL% (35.7-47.0); Hemoglobin 10.9 GM/DL (12.0-16.0); Immature Granulocytes % 0.3 %; Immature Granulocytes Absolute 0.02 #; Lymphocytes # 2.6 10*3/uL (1.4-4.0); Lymphocytes % 39.8 % (21.3-54.2); Mean Corpuscular HGB Conc 32.2 GM/DL (32-36); Mean Corpuscular Hemoglobin 31 PG (27-34); Mean Platelet Volume 11.9 FL (9.6-12.0); Monocytes # 0.5 10*3/uL (0.11-0.8); Neutrophils % 46.4 % (38.7-73.9); Platelet Count 147 T/CUMM (130-400); Red Blood Count 3.52 MC/CUMM (3.8-5.5); Red Cell Distribution Width 15.3 % (9.3-17.3); White Blood Count 6.5 T/CUMM (4-12)
[2018-06-20 06:35] LABS: Calcium 7.7 MG/DL (8.5-10.1); Osmolality,Calculated 279.8 MOS/KG (273-304); Potassium 4.6 MMOL/L (3.5-5.1)
[2018-06-20] MEDS: GEMFIBROZIL 600 MG TABLET PEG SCH (06:47)
[2018-06-20] MEDS: LEVOTHYROXINE 125 MCG TABLET PEG SCH (06:47)
[2018-06-20] MEDS: ACETAMINOPHEN 325 MG TABLET PO PRN ×2 (06:48→14:34)
[2018-06-20] MEDS ORDERED: AMOXICILLIN 50 MG/ML 150 ML/BOTTLE PER TUBE SCH (10:00)
[2018-06-20] MEDS ORDERED: CIPROFLOXACIN 500 MG TABLET PER TUBE SCH (10:00)
[2018-06-20] MEDS: DILTIAZEM 30 MG TABLET PO SCH (10:40)
[2018-06-20] MEDS: SODIUM HYPOCHLORITE 0.25% IRRIG 473 ML BOTTLE TOP SCH (10:40)
[2018-06-20] MEDS: SKIN HEALING OINT (AQUAPHOR) 50 GM TUBE TOP SCH (10:40)
[2018-06-20] MEDS: ASPIRIN EC 81 MG TABLET PO SCH (10:40)
[2018-06-20] MEDS: COLLAGENASE OINT 30 GM TUBE TOP SCH (10:41)
[2018-06-20] MEDS: aMILoride 5 MG TABLET PEG SCH (10:41)
[2018-06-20] MEDS: PANTOPRAZOLE 40 MG TABLET PO SCH (10:41)
[2018-06-20] MEDS: CETIRIZINE 1 MG/ML 30 ML/BOTTLE PO SCH (10:42)
[2018-06-20 15:16] VITALS: BP 98/56
== END 2018-06-20 16:30 | disposition home health service (06) | DRG 698 ==
LOC: EDBD → EDUNIT# → N.EDINP 09:49 → N.ED 09:49 → N.5E 13:58 → SUATTDRO 06-14 09:46
PROVIDERS: ADMIT Internal Medicine; ATTEND Internal Medicine